=== PATIENT | female | born 1950 | race African-American/Black ===

== ENCOUNTER 2017-02-28 12:12 | Emergency (ER) | payer OTHER ==
[~2017-02-28] VITALS: Ht 167.6 cm; Wt 65.0 kg
[2017-02-28 13:22] LABS: BASOPHIL COUNT 0.1 K/uL (0-0.1); EOSINOPHIL (%) 2.4 % (0-5); EOSINOPHIL COUNT 0.1 K/uL (0-0.3); HEMATOCRIT 39.2 % (36.0-46.0); IMMATURE GRANULOCYTE (%) 0.2 % (0.0-0.7); INSTRUMENT ABS NEUTROPHIL CT 3.6 K/uL; LYMPHOCYTE COUNT 1.4 K/uL (1.0-2.8); MCH 27.1 PG (29.0-34.0); MCHC 31.4 G/DL (30.0-36.0); MCV 86.3 FL (83-99); MEAN PLAT.VOLUME 9.2 uM^3 (9.5-12.4); MONOCYTE (%) 8.9 % (3-12); MONOCYTE COUNT 0.5 K/uL (0-0.8); NEUTROPHIL (%) 63.5 % (45-76); NEUTROPHIL COUNT 3.6 K/uL (1.8-6.4); PLATELET COUNT 300 K/uL (156-360); RBC DIS.WIDTH-SD 41.2 % (39-53); RED BLOOD COUNT 4.54 M/uL (3.80-5.20); WHITE BLOOD COUNT 5.7 K/uL (4.1-10.2)
[2017-02-28 13:38] LABS: CHLORIDE 103 mEq/L (99-109); SODIUM 139 mEq/L (136-147)
[2017-02-28 13:40] LABS: GLUCOSE 92 mg/dL (70-99)
[2017-02-28 13:42] LABS: ANION GAP 9 MEQ/L (2-14); TOTAL BILIRUBIN 0.5 mg/dL (0.0-1.0)
[2017-02-28 13:44] LABS: ALKALINE PHOSPHATASE 104 IU/L (3-129); GFR ESTIMATE (CALCULATED) > 59 mL/min/
[2017-02-28 13:45] LABS: UREA NITROGEN (BUN) 6 mg/dL (9-23)
[2017-02-28 15:22] VITALS: BP 142/79
== END 2017-02-28 15:23 | disposition home or self-care (01) ==
LOC: EME 12:12
PROVIDERS: Physician Assistant
DX: M96.842 Postprocedural seroma of a musculoskeletal structure following a musculoskeletal system procedure (principal); R22.1 Localized swelling, mass and lump, neck; G89.18 Other acute postprocedural pain; Y83.8 Other surgical procedures as the cause of abnormal reaction of the patient, or of later complication, without mention of misadventure at the time of the procedure; Z87.891 Personal history of nicotine dependence
CPT/HCPCS: 70491; 80053; 85025; 99281; 99285; J7120

== ENCOUNTER 2017-12-10 09:20 | Emergency (ER) | payer OTHER ==
[~2017-12-10] VITALS: Ht 167.6 cm; Wt 66.5 kg
[2017-12-10 10:05] LABS: HEMATOCRIT 39.1 % (36.0-46.0); HEMOGLOBIN 12.9 G/DL (11.9-15.5); MCH 28.7 PG (29.0-34.0); MCV 87.1 FL (83-99); PLATELET COUNT 188 K/uL (156-360); RBC DIS.WIDTH-SD 41.5 % (39-53); RED BLOOD COUNT 4.49 M/uL (3.80-5.20); WHITE BLOOD COUNT 5.7 K/uL (4.1-10.2)
[2017-12-10 10:23] LABS: CHLORIDE 103 mEq/L (99-109); SODIUM 141 mEq/L (136-147)
[2017-12-10 10:25] LABS: GLUCOSE 87 mg/dL (70-99)
[2017-12-10 10:29] LABS: CREATININE 0.7 mg/dL (0.6-1.3); GFR ESTIMATE (CALCULATED) > 59 mL/min/
[2017-12-10 10:30] LABS: UREA NITROGEN (BUN) 6 mg/dL (9-23)
[2017-12-10 10:37] LABS: TROP-I INTERPRETATION NEGATIVE; TROPONIN-I < 0.01 ng/mL (0.0-0.30)
[2017-12-10] MEDS ORDERED: NAPROSYN500 MG PO (12:04)
[2017-12-10] MEDS ORDERED: ROBAXIN750 MG PO (12:04)
[2017-12-10 12:17] VITALS: BP 161/74
== END 2017-12-10 12:20 | disposition home or self-care (01) ==
LOC: EME 09:20
PROVIDERS: Emergency Medicine
DX: R07.89 Other chest pain (principal); R51 Headache; G89.29 Other chronic pain; M54.12 Radiculopathy, cervical region; Z87.891 Personal history of nicotine dependence
CPT/HCPCS: 71046; 80048; 84484; 85027; 85379; 93005; 99281; 99284